=== PATIENT | female | born 1995 | race Caucasian/White ===

== ENCOUNTER 2021-05-06 07:38 | Emergency (ER) | payer SELFPAY ==
[2021-05-06 07:39] VITALS: BP 168/85; PULSE 84; RESP 16; TEMP 36.7; O2SAT 98; BMI 31.4
--- NOTE | 2021-05-06 09:23 | EX.ED.DYSGE1 ---
HPI History of Present Illness Chief Complaint: Cold Sx Informant: patient Narrative Narrative: Patient is a 25-year-old female with no significant past medical history but does use tobacco regularly presenting with cold-like symptoms. For 3 days she has had runny nose, decreased appetite, headache, cough productive of clear sputum and wheezing/chest tightness. She denies any fever or chills. She has not been smoking because she is been symptomatic. She denies any chest pain. She notes her mother currently has bronchitis. Patient states have never blow my nose so much. She did not have her Covid vaccine because she does not have insurance and did not think she could afford it. 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 She denies any shortness of breath or difficulty breathing. PFSH PFSH no medical history Home Medications NK 05/06/21 [History Last Taken Unknown] Allergy/AdvReac Type Severity Reaction Status Date / Time No Known Allergies Allergy Verified 04/17/16 09:59 no significant family history no surgical history Social History Smoking Status: Unknown if ever smoked ROS ROS ED Constitutional Constitutional ED: Reports sweats; Denies chills or fever(s) Eyes Eyes: Denies change in vision ENT ENT ED: Reports ear pain bilateral, rhinorrhea and other Details: Nasal congestion Cardiovascular Cardiovascular: Reports other Details: Chest tightness ; Denies chest pain or palpitations Respiratory/Chest Respiratory/Chest: Reports cough, sputum and other Details: Wheezing ; Denies dyspnea or dyspnea on exertion Gastrointestinal Gastrointestinal: Denies abdominal pain, nausea or vomiting Genitourinary Genitourinary ED: Denies dysuria or hematuria Musculoskeletal Musculoskeletal: Denies arthralgias or myalgias Integumentary Denies rash Neurologic Neurologic: Reports headache(s); Denies weakness Psychiatric Psychiatric: Denies anxiety or depression EXAM Physical Exam Const Vital Signs: 05/06/21 07:39 05/06/21 09:02 Temperature 98.1 F Temperature Source Temporal Pulse Rate 84 Respiratory Rate 16 Respiratory Effort Normal Non-Labored Respiratory Pattern Normal Blood Pressure 168/85 H Blood Pressure Mean 112 Pulse Ox 98 Oxygen Delivery Method Room Air Positive well nourished and well developed General Appearance ED: well developed HEENT Reports moist mucous membranes and other Air-fluid level noted in the left tympanic membrane. Otherwise normal tympanic membranes bilaterally. Normal ear canals and external ears. No mastoid tenderness. Nasal congestion noted. Eyes PERRL and EOMs intact bilaterally Neck supple and no JVD Chest Wall inspection of chest normal Resp normal respiratory effort Resp Narrative: Bilateral faint expiratory wheezing present. No crackles or diminished breath sounds. Cardio regular rate, regular rhythm and no murmurs GI normal to inspection, nondistended, normoactive bowel sounds Extremity normal to inspection General Extremety ED: Negative for edema General Extremity: Negative for edema Neuro oriented x3 Neuro Narrative: No focal deficits appreciated Sensorium / Orientation: alert Psych mental status grossly normal Skin no rashes or lesions noted MDM MDM MDM Narrative Medical decision making narrative: Patient evaluated for 3 days of cough and upper respiratory symptoms. She appears nontoxic in no acute distress. She is hemodynamically stable. She does have a faint wheeze on exam. She is given albuterol treatment via inhaler and then given the inhaler at time of discharge. Presentation is consistent with bronchitis. Likely from a viral source. She does have a mild ear effusion and is instructed to take [id number] decongestions to help symptomatically. Clinically I do not suspect pneumonia. I do not think a chest and x-rays indicated at this time. She is instructed to avoid work for the next 2days but counseled that clinically she has bronchitis and will be symptomatic the next 2 to 3 weeks. Covid test is negative. At this time I have a low suspicion for Covid and think she has seasonal virus. [facility] as she does not have insurance or PCP. Impression 1. Bronchitis 2. Viral infection Discharge Plan Triage Chief Complaint: Cold Sx ED Provider: Luz Rodriguez Dx/Rx/DC Orders Instructions: ED Bronchitis with Wheezing (Adult) Prescriptions: No Action NK RF: 0 Primary Care Provider: Care Physician,No Primary Referrals: [facility] [NON-STAFF] - Care Physician,No Primary [Primary Care Provider] - Activity Restrictions/Additional Instructions: Use [id number] decongestions such as Tylenol Cold and flu to help with your symptoms. Use the inhaler provided, 1 puff every 4-6 hours as needed for wheezing or chest tightness. Return the emergency room with any worsening symptoms. Your Covid test was negative. Disposition Disposition: Home, Self Care
[2021-05-06 09:36] VITALS: BP 124/77; PULSE 62; RESP 15; O2SAT 98
== END 2021-05-06 09:37 | disposition home or self-care (01) ==
PROVIDERS: Emergency Provider Emergency Medicine
DX: J40 Bronchitis, not specified as acute or chronic (principal); B34.9 Viral infection, unspecified
CPT/HCPCS: 87426; 99282